=== PATIENT | female | born 1935 | race Caucasian/White ===

== ENCOUNTER 2016-12-05 16:46 | Emergency (ER) | payer OTHER, MEDICARE ==
[~2016-12-05] VITALS: Ht 162.6 cm; Wt 73.5 kg
[~2016-12-05 16:46] MED LIST: AMLODIPINE BESYL5 M1 PO; COL100 PO; LIPI20 PO; LOV40I SC; NORCO1 TA2 PO; PRI20 PO; SYMBICORT1 AE2 INH
[2016-12-05 18:01] LABS: BASOPHIL % 0.3 % (0-2)
[2016-12-05 18:03] LABS: CALCIUM 8.8 mg/dL (8.5-10.1); CARBON DIOXIDE 28.3 mmol/L (21-32); CHLORIDE SERUM 106 mmol/L (98-107); CREATININE SERUM 0.8 mg/dL (0.6-1.0); GLUCOSE SERUM 102 mg/dL (74-106); POTASSIUM SERUM 3.4 mmol/L (3.5-5.1); SODIUM SERUM 143 mmol/L (136-145)
[2016-12-05 18:17] LABS: RED CELL DISTRIBUTION WIDTH 14.7 % (11.5-14.5)
[2016-12-05 18:18] LABS: PLATELET COUNT 55 x10^3mcL (130-400)
[2016-12-05 20:07] VITALS: BP 139/79
== END 2016-12-05 20:08 | disposition home or self-care (01) ==
LOC: ED 16:46
PROVIDERS: Emergency Medicine
DX: R04.0 Epistaxis (principal); D69.6 Thrombocytopenia, unspecified; I10 Essential (primary) hypertension; J44.9 Chronic obstructive pulmonary disease, unspecified; E78.00 Pure hypercholesterolemia, unspecified; F41.9 Anxiety disorder, unspecified; Z90.49 Acquired absence of other specified parts of digestive tract; Z90.89 Acquired absence of other organs
CPT/HCPCS: 36415